=== PATIENT | male | born 1995 | race Caucasian/White ===

== ENCOUNTER 2019-06-28 22:23 | Emergency (ER) | payer MEDICAID ==
--- NOTE | 2019-06-28 23:12 | ED Physician Chart ---
ED Chief Complaint/HPI - Patient Information Date Seen:: 06/28/19 Time Seen:: 22:45 Chief Complaint:: pain right small finger History of Present Illness:: About 20 minutes prior to admission patient was playing basketball and the basketball struck his right small finger. Patient is right-hand dominant. Allergies:: Allergies Allergy/AdvReac Type Severity Reaction Status Date / Time No Known Allergies Allergy Verified 06/28/19 22:41 Vitals:: Vital Signs - 8 hr 06/28/19 22:25 Temp 96.5 F HR 103 RR 18 BP 124/89 O2 Sat % 98 Historian:: Patient Review:: Nurse's Note Reviewed ED Review of Systems - Review of Systems General/Constitutional: No fever, No chills, No weight loss, No weakness, No diaphoresis, No edema, No loss of appetite Skin: No skin lesions, No rash, No bruising Head: No headache, No light-headedness Eyes: No loss of vision, No pain, No diplopia ENT: No earache, No nasal drainage, No sore throat, No tinnitus Neck: No neck pain, No swelling, No thyromegaly, No stiffness, No mass noted Cardio Vascular: No chest pain, No palpitations, No PND, No orthopnea, No edema Pulmonary: No SOB, No cough, No sputum, No wheezing GI: No nausea, No vomiting, No diarrhea, No pain, No melena, No hematochezia, No constipation, No hematemesis G/U: No dysuria, No frequency, No hematuria Musculoskeletal: No back pain, No muscle pain Endocrine: No polyuria, No polydipsia Psychiatric: No prior psych history, No depression, No anxiety, No suicidal ideation Hematopoietic: No bruising, No lymphadenopathy Allergic/Immuno: No urticaria, No angioedema Neurological: No syncope, No focal symptoms, No weakness, No paresthesia, No headache, No seizure, No dizziness, No confusion, No vertigo ED Past Medical History - Past Medical History Past Medical History: No significant medical hx Family History: Other (prediabetes) Social History: Non Smoker, No Alcohol Surgical History: None Psychiatricy History: None Medication: None Family Medical History - Family Member Mother History Unknown: Yes ED Physical Exam - Physical Examination General/Constitutional: Awake, Well-developed, well-nourished, Alert, No distress, GCS 15, Non-toxic appearing, Ambulatory Head: Atraumatic Eyes: Lids, conjuctiva normal, PERRL, EOMI Skin: Nl inspection, No rash, No skin lesions, No ecchymosis, Well hydrated, No lymphadenopathy Neck: Nontender, Full ROM w/o pain, No JVD, No nuchal rigidity, No bruit, No mass, No stridor Respiratory: Nl effort/Exclusion, Clear to Auscultation, No Wheeze/Rhonchi/Rales Cardio Vascular: RRR GI: No tenderness/rebounding/guarding, No organomegaly Other Extremities comments:: Right small finger: ulner deviation of his small finger distal to PIP joint and deformity of the PIP joint ED Labs/Radiology/EKG Results - Radiology Results Results: X-ray right small finger showed dislocation of the base of the middle phalanx at the PIP joint ED Assessment - Procedures Procedures:: Right small finger: 1% Xylocaine for digital block right small finger; distal traction and flexion of the PIP joint performed with apparent reduction; after reduction the joint was stable to both anterior and posterior and radial and ulnar stress so the ligaments appeared intact. Aluminum splint which extended to the midportion of the hypothenar eminence was then applied. ED Septic Shock - . Is Septic Shock (SBP<90, OR Lactate>4 mmol\L) present?: No - <6hrs of presentation: Vital Signs: Vital Signs - 8 hr 06/28/19 22:25 Temp 96.5 F HR 103 RR 18 BP 124/89 O2 Sat % 98 ED Reassessment (Disposition) - Reassessment Reassessment Condition:: Unchanged - Diagnosis Diagnosis:: Dislocation base of middle phalanx at PIP joint right small finger - Aftercare/Follow up Instructions Aftercare/Follow-Up Instructions:: Refer to Discharge Instructions - Patient Disposition Discharge/Transfer:: Home Condition at Disposition:: Stable, Improved
--- NOTE | 2019-06-29 08:35 | Diagnostic Imaging Report ---
Exam: Right hand HISTORY: Postreduction FINDINGS: Multiple views of right hand fifth finger reviewed and compared to prior study earlier same day demonstrates satisfactory reduction of the previously described dislocation of the middle interphalangeal joint right fifth finger. IMPRESSION: satisfactory reduction of previously described dislocation of the right fifth finger.
--- NOTE | 2019-06-29 08:36 | Diagnostic Imaging Report ---
Exam: Right hand HISTORY: Pain FINDINGS: Multiple views of the right hand reviewed. The study demonstrates a posterior medial dislocation of the medial interphalangeal joint of the right fifth finger. IMPRESSION: Dislocation of the middle interphalangeal joint right fifth finger.
== END 2019-06-28 23:17 | disposition home or self-care (01) ==
LOC: ER 22:23
DX: S63.276A Dislocation of unspecified interphalangeal joint of right little finger, initial encounter (principal); W21.05XA Struck by basketball, initial encounter; Y93.89 Activity, other specified; Y92.39 Other specified sports and athletic area as the place of occurrence of the external cause; Y99.8 Other external cause status
CPT/HCPCS: 73120-TC-RT